=== PATIENT | female | born 1955 | race Caucasian/White ===

== ENCOUNTER → 2020-01-11 | Outpatient (CLI) | payer MEDICARE ==
[~2020-01-11] MED LIST: ASPIRIN 81M81 MG/TA2 PO; COREG 25MG25 MG/TAB PO; CYMBALTA 60MG60 MG PO; DESYREL 50MG50 MG PO; LIPITOR 40MG TA40 MG PO; MOTRIN 600600 MG/TAB PO; NORCO 325 MG-51 TAB PO; NORVASC 5MG5 MG/TAB PO; PLAVIX 75MG TAB75 MG PO; ZESTRIL 5MG5 MG PO
== END ==
LOC: COL.RAD 12:45
DX: N18.9 Chronic kidney disease, unspecified (principal); N27.1 Small kidney, bilateral

== ENCOUNTER 2024-02-09 12:52 | Emergency (ER) | payer MEDICARE ==
[~2024-02-09] VITALS: Ht 160 cm; Wt 92.7 kg
[2024-02-09 12:59] VITALS: TEMP 97.8
[2024-02-09 13:15] LABS: BASO # 0.1 K/mm3 (0.0-0.2); BASO % 1.2 % (0.0-2.0); EOS # 0.4 K/mm3 (0.0-0.7); EOS % 3.8 % (0.0-4.0); GRAN # 6.3 K/mm3 (1.4-6.5); GRAN % 66.2 % (42.2-75.2); HEMATOCRIT 43.1 % (37.0-47.0); HEMOGLOBIN 14.8 g/dl (12.5-16.0); LYMPH # 1.7 K/mm3 (1.2-3.4); LYMPH % 17.8 % (20.0-51.0); MEAN CELL VOLUME 87 fl (80.0-100.0); MEAN CORPUSCULAR HEMOGLOBIN 30 pg (27-31); MEAN CORPUSCULAR HGB CONC 34 g/dl (33.0-37.0); MEAN PLATELET VOLUME 11.2 fl (7.4-10.4); MONO % 10.7 % (1.7-9.3); PLATELET COUNT 212 K/mm3 (130-400); RED BLOOD COUNT 4.93 M/mm3 (4.10-5.30); REDCELL DISTRIBUTION WIDTH-CV 13.1 % (11.5-14.5)
[2024-02-09 13:36] LABS: ALBUMIN 3.5 g/dL (3.4-4.8); BILIRUBIN,TOTAL 0.3 mg/dL (0.2-1.2); C-REACTIVE PROTEIN 0.81 mg/dL (0.00-0.50); CALCIUM 9.6 mg/dL (8.4-10.2); CREATININE, serum 1.52 mg/dL (0.57-1.11); POTASSIUM 4.1 mEq/L (3.5-4.5); TOTAL PROTEIN 6.9 g/dl (6.2-8.1)
[2024-02-09 13:42] LABS: TROPONIN-I 0.014 ng/mL (0.00-0.033)
[2024-02-09] MEDS ORDERED: predniSONE 20 MG TAB PO ONE (15:00)
[2024-02-09] MEDS ORDERED: NS 1,000 ML IV ONE (15:00)
[2024-02-09] MEDS ORDERED: Albuterol/Ipratropium 3 MG-0.5 MG/3 ML Neb Soln IH ONE (15:00)
[2024-02-09] MEDS ORDERED: cefTRIAXone 1 G in Water For Injection,Sterile 10 ML IV ONE (15:00)
[2024-02-09] MEDS ORDERED: Iodixanol-320 100 ML BOTTLE IV ONE (15:30)
[2024-02-09] MEDS ORDERED: NS 100 ML IV SCH (15:31)
[2024-02-09] MEDS ORDERED: DOXYCYCLINE 10100 MG PO (16:24)
[2024-02-09] MEDS ORDERED: PREDNISONE50 MG PO (16:24)
[2024-02-09] MEDS ORDERED: PROAIR HFA0.09 MG/AC IH (16:26)
[2024-02-09] MEDS ORDERED: HYDROcodone/Chlorphen Polst ER Susp 10-8 MG/5 ML UD PO ONE (16:45)
[2024-02-09 17:11] VITALS: BP 187/75; PULSE 74
== END 2024-02-09 17:23 | disposition home or self-care (01) ==
LOC: COL.ER 12:52
PROVIDERS: Nurse Practitioner
DX: J20.9 Acute bronchitis, unspecified (principal); J44.1 Chronic obstructive pulmonary disease with (acute) exacerbation
CPT/HCPCS: J0696; J7030; J7512; Q9967